=== PATIENT | female | born 1990 | race Caucasian/White ===

== ENCOUNTER 2019-05-17 09:50 | Emergency (ER) | payer OTHER ==
[2019-05-17 10:18] LABS: #Basophils 0.1 thou/uL (0.0-0.2); #Eosinphils 0.1 thou/uL (0.0-0.7); #Lymphocytes 2.2 thou/uL (1.20-3.40); #Monocytes 0.6 thou/uL (0.11-0.59); #Neutrophils 8.8 thou/uL (1.40-6.50); %Basophils 0.8 % (0.0-1.0); %Eosinophils 0.9 % (0.0-10.0); %Lymphocytes 18.7 % (21.0-51.0); %Monocytes 4.7 % (0.0-10.0); %Neutrophils 74.9 % (42.0-75.0); Hemoglobin 12.8 g/dL (12.0-16.0); Mean Corpuscular HGB CONC 33.1 g/dL (32.0-36.0); Mean Corpuscular Volume 93.8 fL (78.0-98.0); Mean Platelet Volume 6.8 fL (7.4-10.4); Platelet Count 788 thou/uL (130-400); RBC Distribution Width 11.8 % (11.5-14.5); Red Blood Cell (RBC) Count 4.14 mill/uL (4.20-5.40); White Blood Cell (WBC) Count 11.7 thou/uL (4.8-10.8)
[2019-05-17 10:37] LABS: ALT (SGPT) 39 U/L (8-55); AST (SGOT) 22 U/L (5-34); Albumin 4.5 g/dL (3.5-5.0); Alkaline Phosphatase 109 U/L (40-150); Anion Gap 10 mmol/L (10-20); BUN (Urea Nitrogen) 13 mg/dL (7.0-18.7); Bilirubin, Total 0.8 mg/dL (0.2-1.2); Calc. Creatinine Clearance 0 mL/min (70-130); Carbon Dioxide 27 mmol/L (22-29); Chloride 105 mmol/L (98-107); Estimated GFR-MDRD 81; Globulin 2.8 g/dL (2.4-3.5); Glucose 98 mg/dL (70-105); Lipase 9 U/L (8-78); Potassium 4.3 mmol/L (3.5-5.1); Protein, Total 7.3 g/dL (6.0-8.3); Sodium 138 mmol/L (136-145)
[2019-05-17 11:30] LABS: Bilirubin Negative (Negative); Blood, Urine Negative (Negative); Glucose, Urine (Dipstick) Negative (Negative); Leukocyte Negative (Negative); Nitrite Negative (Negative); Protein, Urine (Dipstick) Negative (Neg-Trace); Urobilinogen 0.2 mg/dL (Less than 2)
[2019-05-17 11:32] LABS: Clarity Clear (Clear); Pregnancy Test - Urine (BHCG) Negative (Negative); Pregu Control Background? CLEAR/WHITE (CLR/WHITE); Pregu Control Bar Appear? YES (CONTROL BAR); Specific Gravity 1.015 (1.002-1.036)
[2019-05-17] MEDS ORDERED: ISOVUE-370 76%-LOCM 1 ML ONE (11:44)
[2019-05-17] MEDS ORDERED: Ketorolac Tromethamine 30 MG/ML VIAL ONE (11:44)
--- NOTE | 2019-05-17 12:05 | CT ---
CT Abdomen Pelvis W Con HISTORY: Left lower quadrant pain. History of ulcerative colitis. Pain x1 week COMPARISON: None. FINDINGS: The lung bases are clear. Liver shows suggestion of fatty change. The spleen is within normal limits pancreas and gallbladder r egions. Right and left adrenal glands and right and left kidneys are normal in size. There is no significant periaortic adenopathy. There is mild mesenteric lymph node prominence. Mild amount of stool throughout the colon. Study CT of pelvis performed with intravenous contrast enhancement: The appendix appears unremarkable . There are 2 cystic structures in the region of the left adnexa which could represent 2 adjacent cysts or a multiloculated cyst one measures approximately 4.8 cm the other approximately 4.2 cm in si ze I think it is less likely that this represents a hydrosalpinx, there is some free fluid in this region and these cysts are directly adjacent to the sigmoid colon which shows questionable wall thic kening probably just on the basis of some underdistention. IMPRESSION: 1. 2 large left adnexal cysts also with some some free fluid in this region. Ultrasound would be sugg ested to exclude the possibility of torsion.
--- NOTE | 2019-05-17 13:42 | ULT ---
PELVIC ULTRASOUND: COMPARISON: CT of the abdomen/pelvis 05/17/2019. HISTORY: Left lower quadrant abdominal/pelvic pain for a week. TECHNIQUE: Multiplanar, sanders scale, and color Doppler images were obtained in a transabdominal pelvic ultrasound . Spectral analysis of the Doppler waveforms of the ovaries was performed. FINDINGS: The uterus is normal in size and appearance without focal abnormality. The endometrial stripe is nor mal in thickness measuring 7 mm. Both ovaries are normal in size and appearance and demonstrate internal flow. Two dominant follicles are seen in the left ovary. The largest measures 3.9 cm in size. IMPRESSION: No evidence of ovarian torsion. POS: [facility]
== END 2019-05-17 17:10 | disposition home or self-care (01) ==
LOC: ERS 09:50
DX: N83.202 Unspecified ovarian cyst, left side (principal)
CPT/HCPCS: 36415; 74177; 76856; 80053; 81003; 81025; 83690; 85025; 93976; 96361; 96374; J1885; Q9966